=== PATIENT | male | born 1985 | race Caucasian/White ===

== ENCOUNTER 2017-02-26 18:25 | Emergency (ER) | payer BC ==
--- NOTE | 2017-02-26 18:55 | Emergency Department Record ---
History of Present Illness - General Chief Complaint: Neck Injury/Pain Stated Complaint: CHEST /SHOULDER /NECK PAIN Time Seen by Provider: 02/26/17 18:48 Source: Patient Mode of Arrival: Ambulatory Limitations: No limitations - History of Present Illness Initial Comments: 31 yo male presents with about 2 months of fatigue, loss of appetite, right shoulder pain, left chest pain, sleeping more. He is normally a healthy male. He does not have any prior significant medical history. No recent fevers or chills. No rash. No cough or shortness of breath. The right shoulder hurts most of the time and worse with movement. The left chest is sharp occasionally and is random. It is not exertion related or associated with other symptoms. No premature history of CAD in the patient or in the family. He does smoke. MD Complaint: Other Onset/Timin -: Month(s) Radiation: Chest, Right shoulder, Upper back Severity: Mild Quality: Sharp, Stabbing Consistency: Intermittent Improves With: None Worsens With: None Associated Symptoms: None Treatments Prior to Arrival: None - Related Data Home Medications Medication Instructions Recorded Confirmed Last Taken No Home Med [NO HOME MEDS] 02/26/17 02/26/17 Unknown Allergies Allergy/AdvReac Type Severity Reaction Status Date / Time No Known Drug Allergies Allergy Verified 02/26/17 18:29 Travel Screening - Travel/Exposure Within Last 30 Days Have you traveled within the last 30 days?: No - Travel/Exposure Within Last Year Have you traveled outside the [place] in the last year?: No - Additonal Travel Details Have you been exposed to anyone with a communicable illness?: No - Travel Symptoms Symptom Screening: None Review of Systems Constitutional: Reports: Malaise. Denies: Chills, Fever, Night sweats, Weakness Eyes: Denies: Eye discharge, Eye pain, Photophobia, Vision change ENT: Denies: Congestion, Dental pain, Epistaxis, Throat pain Respiratory: Denies: Cough, Dyspnea, Hemoptysis, Stridor, Wheezes Cardiovascular: Reports: Chest pain. Denies: Arrhythmia, Dyspnea on exertion, Edema, Palpitations, Syncope Endocrine: Reports: Fatigue. Denies: Polydipsia, Polyuria Gastrointestinal: Denies: Abdominal pain, Diarrhea, Nausea, Vomiting Genitourinary: Denies: Dysuria, Frequency, Hematuria, Retention Musculoskeletal: Reports: Arthralgia, Myalgia. Denies: Back pain, Neck pain Skin: Denies: Bruising, Change in color, Rash Neurological: Denies: Abnormal gait, Confusion, Headache, Numbness, Tingling, Vertigo, Weakness Psychiatric: Denies: Anxiety Hematological/Lymphatic: Denies: Blood Clots, Easy bleeding, Easy bruising, Swollen glands Past Medical History - SOCIAL HISTORY Smoking Status: Current every day smoker Alcohol Use: None Drug Use: None - RESPIRATORY Hx Respiratory Disorders: No - CARDIOVASCULAR Hx Cardio Disorders: No - NEURO Hx Neuro Disorders: No - GI Hx GI Disorders: No - Hx Genitourinary Disorders: No - ENDOCRINE Hx Endocrine Disorders: No - MUSCULOSKELETAL Hx Musculoskeletal Disorders: No - PSYCH Hx Psych Problems: No - HEMATOLOGY/ONCOLOGY Hx Hematology/Oncology Disorders: No Family Medical History Any Significant Family History?: No Physical Exam - General General Appearance: Alert, Oriented x3, Cooperative, No acute distress Limitations: No limitations - Head Head exam: Normal inspection - Eye Eye exam: Normal appearance, PERRL. negative: Conjunctival injection, Periorbital swelling, Scleral icterus - ENT ENT exam: Normal exam, Mucous membranes moist Ear exam: Normal external inspection Nasal Exam: Normal inspection Mouth exam: Normal external inspection Teeth exam: Normal inspection Throat exam: Normal inspection. negative: Tonsillar erythema - Neck Neck exam: Normal inspection, Full ROM. negative: Tenderness - Respiratory Respiratory exam: Normal lung sounds bilaterally, Chest wall tenderness ( anterior right and anterior left upper). negative: Decreased breath sounds, Respiratory distress, Rhonchi, Stridor, Wheezes - Cardiovascular Cardiovascular Exam: Regular rate, Normal rhythm, Normal heart sounds. negative : Diastolic murmur, Systolic murmur - GI/Abdominal GI/Abdominal exam: Soft, Normal bowel sounds. negative: Tenderness - Rectal Rectal exam: Deferred - exam: Deferred - Extremities Extremities exam: Normal inspection, Full ROM, Normal capillary refill. negative: Pedal edema, Tenderness - Back Back exam: Reports: Normal inspection, Full ROM. Denies: CVA tenderness (R), CVA tenderness (L), Muscle spasm, Paraspinal tenderness, Rash noted, Tenderness - Neurological Neurological exam: Alert, CN II-XII intact, Normal gait, Oriented X3, Reflexes normal. negative: Altered, Motor sensory deficit - Psychiatric Psychiatric exam: Normal affect, Normal mood - Skin Skin exam: Dry, Intact, Normal color, Warm. negative: Cyanosis, Diaphoretic, Erythema Course Vital Signs 02/26/17 18:30 Temperature 98 F Pulse Rate 84 Respiratory 20 Rate Blood Pressure 142/107 Pulse Ox 99 - Reevaluation(s) Reevaluation #1: 02/26/17 19:17 EKG 18:50 NSR rate of 74, Intervals normal, [place] normal, ST normal. Normal EKG Reevaluation #2: The labs were reviewed No acute changes of the CBC, CMP The EKG and Troponin or negative after 2 months of atypical symptoms without strong risk factors The patient will be referred to family medicine for follow up and any need for ongoing testing and routine health maintenance 02/26/17 19:35 Reevaluation #3: ESR and TSH in the normal range The patient was informed and instructed to repeat with new PCP 02/26/17 19:49 Medical Decision Making - Lab Data Result diagrams: 02/26/17 18:55 02/26/17 18:55 Disposition Disposition: Discharge Clinical Impression: Fatigue, Shoulder pain, Atypical chest pain Disposition: Home, Self-Care Condition: (1) Good Instructions: Weakness (ED) Additional Instructions: Call tomorrow for a new family doctor Return if you have any new concerns or worsening symptoms Consider a follow up sleep study with your new family doctor as well given your difficulties with sleep and fatigue Referrals: AMANDEEP COTTRELL M.D. [MEDICAL DOCTOR] - Forms: Patient Portal Access Time of Disposition: 19:38
[2017-02-26 19:04] LABS: BASO % 0.4 % (0-6); EOS % 3.1 % (0-6); GRAN % 56.7 % (47-80); HEMATOCRIT 45.7 % (42.0-52.0); LYMPH % 32.2 % (16-45); MEAN CELL VOLUME 82.3 fl (81-97); MEAN CORPUSCULAR HGB CONC 32.8 g/dl (32-36); MEAN PLATELET VOLUME 9.6 fl (7.4-10.4); MONO % 7.6 % (0-9); PLATELET COUNT 276 K/uL (130-400); RED BLOOD COUNT 5.55 M/uL (4.40-5.70); RED CELL DISTRIBUTION WIDTH 14.4 % (11.5-14.5); WHITE BLOOD COUNT W/O DIFF 8.3 K/uL (4.2-12.2)
[2017-02-26 19:15] LABS: ALB/GLOB RATIO 1.5 (1.1-1.8); ALBUMIN 4.1 gm/dL (3.5-5.0); ALKALINE PHOSPHATASE 65 U/L (38-126); ALT/SGPT 58 U/L (21-72); ANION GAP 4.5 (7-16); AST/SGOT 41 U/L (17-59); BILIRUBIN,TOTAL 0.36 mg/dL (0.2-1.3); BLOOD UREA NITROGEN 14 mg/dL (9-20); CARBON DIOXIDE 29.5 mmol/L (22-30); CREATININE 0.9 mg/dL (0.66-1.25); EST GLOMERULAR FILTRATION RATE > 60 ml/min; GLUCOSE,RANDOM 69 mg/dL (70-110); TOTAL PROTEIN 6.8 gm/dL (6.3-8.2)
[2017-02-26 19:46] LABS: THYROID STIMULATING HORMONE 0.78 uIU/ml (0.465-4.68)
--- NOTE | 2017-03-01 15:13 | RADIOLOGY REPORT ---
EXAM: CHEST 2 VIEWS HISTORY: ACUTE CHEST PAIN. TECHNIQUE: Two-view chest. COMPARISON: None. FINDINGS: Lungs are clear. Cardiac silhouette, diaphragm, and osseous structures are unremarkable for age. IMPRESSION: NEGATIVE CHEST. JOB NUMBER: [id number] MTDD
== END 2017-02-26 19:56 | disposition home or self-care (01) ==
LOC: ER 18:25
DX: R07.89 Other chest pain (principal); R53.83 Other fatigue; M25.511 Pain in right shoulder; F17.210 Nicotine dependence, cigarettes, uncomplicated
CPT/HCPCS: 71020; 80053; 84443; 84484; 85025; 85651; 93005; 93010; 99284

== ENCOUNTER 2018-12-20 01:45 | Emergency (ER) | payer BC ==
[2018-12-20] MEDS ORDERED: LORAZEPAM 0.5 MG TABLET PO ONE (02:04)
[2018-12-20 03:00] LABS: BASO % 0.4 % (0-6); EOS % 2.4 % (0-6); GRAN % 61.4 % (47-80); HEMATOCRIT 44.8 % (42.0-52.0); HEMOGLOBIN 15.2 gm/dl (14.0-18.0); LYMPH % 26.1 % (16-45); MEAN CELL VOLUME 80.1 fl (81-97); MEAN CORPUSCULAR HEMOGLOBIN 27.2 pg (27-33); MEAN CORPUSCULAR HGB CONC 33.9 g/dl (32-36); MEAN PLATELET VOLUME 9.3 fl (7.4-10.4); MONO % 9.7 % (0-9); PLATELET COUNT 322 K/uL (130-400); RED BLOOD COUNT 5.59 M/uL (4.40-5.70); RED CELL DISTRIBUTION WIDTH 14.2 % (11.5-14.5); WHITE BLOOD COUNT W/O DIFF 7.9 K/uL (4.2-12.2)
--- NOTE | 2018-12-20 03:10 | Emergency Department Record ---
Anxiety - General Chief Complaint: Anxiety Stated Complaint: ANXIETY PANIC Source: Patient Mode of Arrival: Ambulatory Limitations: No limitations - History of Present Illness Initial Comments: pt feels anxious, restless , crampy in chest, tingling. he has had this before MD Complaint: Anxiety Onset/Timin -: Hour(s) Symptoms: Chest pain, Dry mouth, Extremity numbness/tingling Place: Home Previous History of Same: Yes Severity: Moderate Quality: Constant, Worsening, Similar to prior episodes Provoking factors: Work/job stress Improves With: Nothing Worsens With: Nothing Associated symptoms: Denies other symptoms - Related Data Allergies/Adverse Reactions: Allergies Allergy/AdvReac Type Severity Reaction Status Date / Time No Known Drug Allergies Allergy Verified 02/26/17 18:29 Travel Screening - Travel/Exposure Within Last 30 Days Have you traveled within the last 30 days?: No Review of Systems Reviewed: No additional complaints except as noted below Constitutional: Reports: As per HPI. Denies: Chills, Fever, Malaise, Night sweats, Weakness, Weight change Eyes: Reports: As per HPI. Denies: Eye discharge, Eye pain, Photophobia, Vision change ENT: Reports: As per HPI. Denies: Congestion, Dental pain, Ear pain, Epistaxis , Hearing loss, Throat pain Respiratory: Reports: As per HPI. Denies: Cough, Dyspnea, Hemoptysis, Stridor, Wheezes Cardiovascular: Reports: As per HPI. Denies: Arrhythmia, Chest pain, Dyspnea on exertion, Edema, Murmurs, Orthopnea, Palpitations, Paroxysmal nocturnal dyspnea, Rheumatic Fever, Syncope Endocrine: Reports: As per HPI. Denies: Fatigue, Heat or cold intolerance, Polydipsia, Polyuria Gastrointestinal: Reports: As per HPI. Denies: Abdominal pain, Constipation, Diarrhea, Hematemesis, Hematochezia, Melena, Nausea, Vomiting Genitourinary: Reports: As per HPI. Denies: Dysuria, Frequency, Hematuria, Incontinence, Retention, Testicular pain, Testicular mass, Urgency Musculoskeletal: Reports: As per HPI. Denies: Arthralgia, Back pain, Gout, Joint swelling, Myalgia, Neck pain Skin: Reports: As per HPI. Denies: Bruising, Change in color, Change in hair/ nails, Lesions, Pruritus, Rash Neurological: Reports: As per HPI. Denies: Abnormal gait, Confusion, Headache, Numbness, Paresthesias, Seizure, Tingling, Tremors, Vertigo, Weakness Psychiatric: Reports: As per HPI, Anxiety. Denies: Auditory hallucinations, Depression, Homicidal thoughts, Suicidal thoughts, Visual hallucinations Hematological/Lymphatic: Reports: As per HPI. Denies: Anemia, Blood Clots, Easy bleeding, Easy bruising, Swollen glands Past Medical History - SOCIAL HISTORY Smoking Status: Current every day smoker Alcohol Use: None Drug Use: None - RESPIRATORY Hx Respiratory Disorders: No - CARDIOVASCULAR Hx Cardio Disorders: No - NEURO Hx Neuro Disorders: No - GI Hx GI Disorders: No - Hx Genitourinary Disorders: No - ENDOCRINE Hx Endocrine Disorders: No - MUSCULOSKELETAL Hx Musculoskeletal Disorders: No - PSYCH Hx Psych Problems: No - HEMATOLOGY/ONCOLOGY Hx Hematology/Oncology Disorders: No Family Medical History Any Significant Family History?: No Physical Exam - General General Appearance: Alert, Oriented x3, Cooperative, Mild distress - Head Head exam: Normal inspection - Eye Eye exam: Normal appearance, PERRL, EOMI Pupils: Normal accommodation - ENT ENT exam: Normal exam, Mucous membranes moist, Normal external ear exam, Normal orophraynx, TM's normal bilaterally Ear exam: Normal external inspection. negative: External canal tenderness Nasal Exam: Normal inspection. negative: Discharge, Sinus tenderness Mouth exam: Normal external inspection, Tongue normal Teeth exam: Normal inspection. negative: Dental caries Throat exam: Normal inspection. negative: Tonsillar erythema, Tonsillar exudate - Neck Neck exam: Normal inspection, Full ROM. negative: Tenderness - Respiratory Respiratory exam: Normal lung sounds bilaterally. negative: Respiratory distress - Cardiovascular Cardiovascular Exam: Regular rate, Normal rhythm, Normal heart sounds - GI/Abdominal GI/Abdominal exam: Soft, Normal bowel sounds. negative: Tenderness - Rectal Rectal exam: Deferred - exam: Deferred - Extremities Extremities exam: Normal inspection, Full ROM, Normal capillary refill. negative: Tenderness - Back Back exam: Reports: Normal inspection, Full ROM. Denies: Muscle spasm, Rash noted, Tenderness - Neurological Neurological exam: Alert, CN II-XII intact, Normal gait, Oriented X3 - Psychiatric Psychiatric exam: Anxious, Normal affect, Normal mood - Skin Skin exam: Dry, Intact, Normal color, Warm Course Vital Signs 12/20/18 01:52 Temperature 97.0 F L Pulse Rate [ 97 H Left] Respiratory 16 Rate Blood Pressure 145/99 [Left Arm] Pulse Ox 99 - Reevaluation(s) Reevaluation #1: 12/20/18 03:29 pt feels better Medical Decision Making - Lab Data Result diagrams: 12/20/18 02:59 12/20/18 02:59 Lab Results 12/20/18 12/20/18 Range/Units 02:57 02:59 WBC 7.9 (4.2-12.2) K/uL RBC 5.59 (4.40-5.70) M/uL Hgb 15.2 (14.0-18.0) gm/dl Hct 44.8 (42.0-52.0) % MCV 80.1 L (81-97) fl MCH 27.2 (27-33) pg MCHC 33.9 (32-36) g/dl RDW 14.2 (11.5-14.5) % Plt Count 322 (130-400) K/uL MPV 9.3 (7.4-10.4) fl Gran % 61.4 (47-80) % Lymphocytes % 26.1 (16-45) % Monocytes % 9.7 H (0-9) % Eosinophils % 2.4 (0-6) % Basophils % 0.4 (0-6) % TSH Cancelled Disposition Disposition: Discharge Clinical Impression: Anxiety Disposition: Home, Self-Care Condition: (1) Good Instructions: Anxiety (ED) Additional Instructions: follow up with family doctor. return sooner if worse. Forms: Patient Portal Access Quality - Quality Measures Quality Measures: N/A - Blood Pressure Screening Does Patient Have Any of the Following: No Blood Pressure Classification: Hypertensive Reading Systolic Measurement: 145 Diastolic Measurement: 99 Screening for High Blood Pressure: < First Hypertensive BP, F/U Documented > [ [id number]] First Hypertensive Follow-up Interventions: Follow-up with rescreen GT 1 day and LT 4 weeks.
[2018-12-20 03:14] LABS: BLOOD UREA NITROGEN 19 mg/dL (6-20); CREATININE 1.1 mg/dL (0.7-1.2); EST GLOMERULAR FILTRATION RATE > 60 mL/min
[2018-12-20 03:17] LABS: GLUCOSE,RANDOM 78 mg/dL (74-109)
[2018-12-20 03:30] LABS: THYROID STIMULATING HORMONE 1.33 uIU/mL (0.270-4.20)
== END 2018-12-20 03:37 | disposition home or self-care (01) ==
LOC: ER 01:45
DX: F41.8 Other specified anxiety disorders (principal); F43.0 Acute stress reaction; R07.9 Chest pain, unspecified; R20.2 Paresthesia of skin; F17.210 Nicotine dependence, cigarettes, uncomplicated
CPT/HCPCS: 71046; 80048; 84443; 84484; 85025; 93005; 93010; 99284